=== PATIENT | female | born 1970 | race Two or more races ===

== ENCOUNTER 2024-06-05 16:57 | Emergency (ER) | payer MEDICAID ==
[~2024-06-05] VITALS: Ht 165.1 cm; Wt 54.5 kg
[2024-06-05] MEDS: ONDANSETRON ODT 4 MG TAB PO ONE ×2 (18:59→22:00)
[2024-06-05] MEDS: HYDROmorphone HCL 2 MG/ML VL/or syr IM ONE (19:00)
[2024-06-05] MEDS: METOCLOPRAMIDE HCL 5MG/ml INJ 2ml VIAL IM ONE (22:00)
[2024-06-05] MEDS: HYDROcodone-ACET 5/325MG TAB PO ONE (22:00)
[2024-06-05] MEDS ORDERED: ZOFR4T PO (22:15)
[2024-06-05] MEDS ORDERED: ACE3T PO (22:15)
[2024-06-05] MEDS ORDERED: IBUP-1454 PO (22:15)
[2024-06-05 22:39] VITALS: BP 158/96; PULSE 74; RESP 17; TEMP 97.7; O2SAT 97
== END 2024-06-05 22:40 | disposition home or self-care (01) ==
LOC: EDBD 16:57 → ER 16:57 → EDUNIT# 16:57 → ER 22:40
DX: S16.1XXA Strain of muscle, fascia and tendon at neck level, initial encounter (principal); S39.012A Strain of muscle, fascia and tendon of lower back, initial encounter; S70.02XA Contusion of left hip, initial encounter; S40.022A Contusion of left upper arm, initial encounter; E11.9 Type 2 diabetes mellitus without complications; E78.5 Hyperlipidemia, unspecified; I10 Essential (primary) hypertension; R51.9 Headache, unspecified; V43.52XA Car driver injured in collision with other type car in traffic accident, initial encounter; Y93.89 Activity, other specified; Y92.488 Other paved roadways as the place of occurrence of the external cause; Y99.8 Other external cause status
CPT/HCPCS: 70450; 71250; 72125; 73200; 74176; 82962; 96372; 99285; J1170; Q0162